=== PATIENT | female | born 1985 | race African-American/Black ===

== ENCOUNTER 2018-04-02 14:00 | Emergency (ER) | payer MEDICAID ==
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
== END 2018-04-02 16:15 | disposition home or self-care (01) ==
LOC: ER 14:00
DX: S46.812A Strain of other muscles, fascia and tendons at shoulder and upper arm level, left arm, initial encounter (principal); V43.62XA Car passenger injured in collision with other type car in traffic accident, initial encounter; Y93.I9 Activity, other involving external motion; Y92.410 Unspecified street and highway as the place of occurrence of the external cause; D61.9 Aplastic anemia, unspecified
CPT/HCPCS: 71046; 99283

== ENCOUNTER 2019-02-16 14:26 | Emergency (ER) | payer MEDICAID ==
[2019-02-16 15:34] LABS: Urine Blood NEGATIVE (NEG); Urine Glucose NEGATIVE (NEG); Urine Protein NEGATIVE (NEG); Urine Specific Gravity 1.015 (1.005-1.030)
[2019-02-16] MEDS ORDERED: ONDANSETRON 4 MG (ODT) TAB ONE (15:42)
[2019-02-16] MEDS ORDERED: MECLIZINE HCL 12.5 MG TAB ONE (15:42)
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
[2019-02-16 15:56] LABS: Urine Specific Gravity 1.015 (1.005-1.030)
--- NOTE | 2019-02-16 15:56 | EDPHYS ---
Physician Documentation [facility] Name: Kristi Jimenez Age: 33 yrs Sex: Female : 1985 Arrival Date: 02/16/2019 Time: 14:29 Bed 15 Private MD: None, None ED Physician Emir Simons HPI: 02/16 15:30 This 33 yrs old Black Female presents to ER via Ambulatory with complaints of juan carlos Congestion, LIGHTHEADED. 15:30 The patient or guardian reports cough, described as mild. Onset: The symptoms/episode juan carlos began/occurred 1 day(s) ago. The patient presents with dizziness. Onset: The symptoms/episode began/occurred today. Context: occurred at home. Modifying factors: The symptoms are alleviated by holding head still, the symptoms are aggravated by movement of head, standing up. Associated signs and symptoms: The patient has no apparent associated signs or symptoms. Severity of symptoms: At their worst the symptoms were mild, in the emergency department the symptoms are unchanged. 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 - Social history:: Smoking status: Patient/guardian denies using tobacco. - Ebola Screening: : No symptoms or risks identified at this time. - Family history:: not pertinent. ROS: 15:30 Constitutional: Negative for fever, chills, and weight loss, Eyes: Negative for injury, juan carlos pain, redness, and discharge, ENT: Negative for injury, pain, and discharge, Neck: Negative for injury, pain, and swelling, Cardiovascular: Negative for chest pain, palpitations, and edema, Abdomen/GI: Negative for abdominal pain, nausea, vomiting, diarrhea, and constipation, Back: Negative for injury and pain, : Negative for injury, bleeding, discharge, and swelling, MS/Extremity: Negative for injury and deformity, Skin: Negative for injury, rash, and discoloration, Psych: Negative for depression, anxiety, suicide ideation, homicidal ideation, and hallucinations, Allergy/Immunology: Negative for hives, rash, and allergies, Endocrine: Negative for neck swelling, polydipsia, polyuria, polyphagia, and marked weight changes, Hematologic/Lymphatic: Negative for swollen nodes, abnormal bleeding, and unusual bruising. 15:30 Respiratory: Positive for cough. 15:30 Neuro: Positive for dizziness, weakness. Exam: 15:30 Constitutional: This is a well developed, well nourished patient who is awake, alert, juan carlos and in no acute distress. Head/Face: Normocephalic, atraumatic. Eyes: Pupils equal round and reactive to light, extra-ocular motions intact. Lids and lashes normal. Conjunctiva and sclera are non-icteric and not injected. Cornea within normal limits. Periorbital areas with no swelling, redness, or edema. ENT: Nares patent. No nasal discharge, no septal abnormalities noted. Tympanic membranes are normal and external auditory canals are clear. Oropharynx with no redness, swelling, or masses, exudates, or evidence of obstruction, uvula midline. Mucous membranes moist. Neck: Trachea midline, no thyromegaly or masses palpated, and no cervical lymphadenopathy. Supple, full range of motion without nuchal rigidity, or vertebral point tenderness. No Meningismus. Chest/axilla: Normal chest wall appearance and motion. Nontender with no deformity. No lesions are appreciated. Cardiovascular: Regular rate and rhythm with a normal S1 and S2. No gallops, murmurs, or rubs. Normal PMI, no JVD. No pulse deficits. Respiratory: Lungs have equal breath sounds bilaterally, clear to auscultation and percussion. No rales, rhonchi or wheezes noted. No increased work of breathing, no retractions or nasal flaring. Abdomen/GI: Soft, non-tender, with normal bowel sounds. No distension or tympany. No guarding or rebound. No evidence of tenderness throughout. Back: No spinal tenderness. No costovertebral tenderness. Full range of motion. Skin: Warm, dry with normal turgor. Normal color with no rashes, no lesions, and no evidence of cellulitis. MS/ Extremity: Pulses equal, no cyanosis. Neurovascular intact. Full, normal range of motion. Neuro: Awake and alert, GCS 15, oriented to person, place, time, and situation. Cranial nerves II-XII grossly intact. Motor strength 5/5 in all extremities. Sensory grossly intact. Cerebellar exam normal. Normal gait. Psych: Awake, alert, with orientation to person, place and time. Behavior, mood, and affect are within normal limits. 15:30 Musculoskeletal/extremity: DVT Exam: No signs of deep vein thrombosis. no pain, no swelling, no tenderness, negative Homans' sign noted on exam, no appreciated bluish discoloration, no erythema, no increased warmth. Vital Signs: 14:49 BP 129 / 74; Pulse 90; Resp 16; Temp 97.2; Pulse Ox 100% ; Weight 106.59 kg; Height 5 bp ft. 3 in. (160.02 cm); 15:45 BP 111 / 64; Pulse 88; Resp 16; Temp 98.1(O); Pulse Ox 98% on R/A; Pain 0/10; rb1 16:45 BP 126 / 72 Supine; Pulse 80; Resp 18; Pulse Ox 100% on R/A; rb1 16:47 BP 119 / 82 Sitting; Pulse 88; Resp 19; Pulse Ox 100% on R/A; rb1 16:49 BP 123 / 81 Standing; Pulse 94; Resp 19; Pulse Ox 99% on R/A; rb1 14:49 Body Mass Index 41.63 (106.59 kg, 160.02 cm) bp MDM: 15:06 Patient medically screened. [facility] 15:32 Data reviewed: vital signs, nurses notes, lab test result(s). [facility] 02/16 15:15 Order name: Urine Culture [facility] 02/16 15:26 Order name: CBC with Diff [facility] 02/16 15:26 Order name: Comprehensive Metabolic Panel; Complete Time: 16:16 [facility] 02/16 15:27 Order name: CBC with Automated Diff; Complete Time: 16:16 [facility] 02/16 15:33 Order name: Urine Dipstick--Ancillary (enter results) 02/16 15:34 Order name: Urine Dipstick-Ancillary; Complete Time: 15:44 [facility] 02/16 15:15 Order name: Urine Dipstick-Ancillary (obtain specimen); Complete Time: 15:30 [facility] 02/16 15:15 Order name: Urine Test (obtain specimen); Complete Time: 15:30 [facility] 02/16 15:36 Order name: Urine --Ancillary (enter results); Complete Time: 16:16 02/16 15:26 Order name: Orthostatics; Complete Time: 16:54 [facility] Administered Medications: 15:40 Drug: Meclizine 50 mg Route: PO; rb1 16:10 Follow up: Response: No adverse reaction; Marked relief of symptoms rb1 15:40 Drug: Zofran 4 mg Route: PO; rb1 16:10 Follow up: Response: No adverse reaction; Nausea is decreased rb1 15:43 Not Given (Provider discretion): Rocephin - (cefTRIAXone) 1 grams IVPB once over 30 rb1 mins; (mix in 50 mL NS) 15:55 Drug: NS 0.9% 1000 ml Route: IV; Rate: 1 bolus; Site: right antecubital; rb1 16:45 Follow up: IV Status: Completed infusion rb1 15:55 Drug: Rocephin 1 grams Route: IV; Rate: calculated rate; Site: right antecubital; rb1 16:25 Follow up: Response: No adverse reaction; IV Status: Completed infusion rb1 Disposition: 02/16/19 15:54 Discharged to Home. Impression: Dizziness and giddiness, Vertiginous syndromes in diseases classified elsewhere, unspecified ear, Urinary tract infection, site not specified. - Condition is Stable. - Discharge Instructions: Benign Positional Vertigo, Dizziness, Urinary Tract Infection, Adult, Vertigo, Urinary Tract Infection, Adult, [id number], Dizziness, [id number]. - Prescriptions for Meclizine 25 mg Oral Tablet - take 1 tablet by ORAL route every 8 hours As needed; 30 tablet. Zofran 4 mg Oral Tablet - take 1 tablet by ORAL route every 12 hours As needed; 14 tablet. Cipro 250 mg Oral Tablet - take 1 tablet by ORAL route every 12 hours; 14 tablet. - Medication Reconciliation Form, Thank You Letter, Antibiotic Education, Prescription Opioid Use form. - Follow up: Private Physician; When: 2 - 3 days; Reason: Recheck today's complaints, Continuance of care, Re-evaluation by your physician. - Problem is new. - Symptoms have improved. Signatures: Dispatcher [employer] EDEmir Burch MD MD cha Barber, Rebecca, RN RN rb1 Rancho Mo RN RN bp Corrections: (The following items were deleted from the chart) 16:59 15:54 02/16/2019 15:54 Discharged to Home. Impression: Dizziness and giddiness; rb1 Vertiginous syndromes in diseases classified elsewhere, unspecified ear; Urinary tract infection, site not specified. Condition is Stable. Discharge Instructions: Benign Positional Vertigo, Dizziness, Vertigo, Dizziness, [id number], Urinary Tract Infection, Adult, Urinary Tract Infection, Adult, [id number]. Prescriptions for Meclizine 25 mg Oral Tablet - take 1 tablet by ORAL route every 8 hours As needed; 30 tablet, Zofran 4 mg Oral Tablet - take 1 tablet by ORAL route every 12 hours As needed; 14 tablet, Cipro 250 mg Oral Tablet - take 1 tablet by ORAL route every 12 hours; 14 tablet. and Forms are Medication Reconciliation Form, Thank You Letter, Antibiotic Education, Prescription Opioid Use. Follow up: Private Physician; When: 2 - 3 days; Reason: Recheck today's complaints, Continuance of care, Re-evaluation by your physician. Problem is new. Symptoms have improved. juan carlos
[2019-02-16 16:03] LABS: Absolute Lymphocytes (CBC) 1.6 K/uL (0.7-4.9); Absolute Monocytes 0.6 K/uL (0.1-1.3); Basophils % 0.5 % (0-1.3); Eosinophils % 3.1 % (0-4.4); Hematocrit 39.2 % (36.0-45.0); Lymphocytes % 28.9 % (15.3-44.8); Monocytes % 10.8 % (3.3-12.3); RBC Red Blood Cell Count 4.47 M/uL (3.86-4.86)
[2019-02-16 16:04] LABS: Albumin 3.4 g/dL (3.4-5.0); Bilirubin Total 0.4 mg/dL (0.2-1.0); Protein, Total 8.5 g/dL (6.4-8.2)
[2019-02-16] MEDS ORDERED: CEFTRIAXONE/SWI 1gm 1 GM/10 ML SYR ONE (16:04)
[2019-02-16] MEDS ORDERED: NA CHLORIDE 0.9% 1,000 ML ONE (16:04)
== END 2019-02-16 16:59 | disposition home or self-care (01) ==
LOC: ER 14:26
DX: N39.0 Urinary tract infection, site not specified (principal); H82.9 Vertiginous syndromes in diseases classified elsewhere, unspecified ear
CPT/HCPCS: 36415; 80053; 81003; 81025; 85025; 87086; 87088; 96365; 99284; J0696; J7030

== ENCOUNTER 2020-05-31 12:50 | Emergency (ER) | payer MEDICAID, SELFPAY ==
[2020-05-31 13:53] LABS: Urine Blood 2+ (NEG); Urine Glucose NEGATIVE (NEG); Urine Protein NEGATIVE (NEG); Urine pH 5.5 (5.0-7.0)
[2020-05-31] MEDS ORDERED: NA CHLORIDE 0.9% 1,000 ML ONE (13:56)
--- NOTE | 2020-05-31 14:28 | RAD REPORT ---
EXAM DESCRIPTION: US - Transvaginal Study Probe - 05/31/2020 2:17 pm CLINICAL HISTORY: ABD PAIN Pelvic pain. COMPARISON: Pelvis Complete dated 03/02/2017 FINDINGS: The uterus is normal in size, shape and echotexture. The uterus measures 7.3 x 6.2 x 5.0 c m. Small 15 mm intramural fibroid seen superiorly. The endometrial stripe measures 7 mm, normal. The left ovary is normal in size, shape and echotexture. The left ovary measures 3.2 x 1.6 x 1.4 cm. No left ovarian or parovarian lesions. No adnexal masses. Normal Doppler blood flow was demonstrated to the left ovary. The right ovary was obscured by bowel g as. No significant pelvic ascites. IMPRESSION: Small uterine fibroid.
[2020-05-31 14:37] LABS: Absolute Lymphocytes (CBC) 2.1 K/uL (0.7-4.9); Basophils % 0.8 % (0-1.3); Hematocrit 33.3 % (36.0-45.0); Lymphocytes % 41.1 % (15.3-44.8); MPV 7.4 fL (7.6-11.3); RBC Red Blood Cell Count 3.78 M/uL (3.86-4.86)
[2020-05-31 14:51] LABS: BUN Blood Urea Nitrogen 9 mg/dL (7-18); Bicarbonate 30 mmol/L (21-32); Glucose Level 88 mg/dL (74-106); Potassium 3.8 mmol/L (3.5-5.1); Sodium Level 140 mmol/L (136-145)
--- NOTE | 2020-05-31 16:24 | ER ---
Nurse's Notes [facility] Name: Kristi Jimenez Age: 34 yrs Sex: Female : 1985 Arrival Date: 05/31/2020 Time: 12:52 Bed 26 Private MD: Diagnosis: Dysmenorrhea, unspecified Presentation: 05/31 13:04 Chief complaint: Patient states: heavy period for 1 week, usually last 4-5 days, denies em chance of being , denies N/V or fever. Coronavirus screen: Client denies travel out of the [place] in the last 14 days. Ebola Screen: Patient negative for fever greater than or equal to 101.5 degrees Fahrenheit, and additional compatible Ebola Virus Disease symptoms Patient denies exposure to infectious person. Patient denies travel to an Ebola-affected area in the 21 days before illness onset. No symptoms or risks identified at this time. Initial Sepsis Screen: Does the patient meet any 2 criteria? No. Patient's initial sepsis screen is negative. Does the patient have a suspected source of infection? No. Patient's initial sepsis screen is negative. Risk Assessment: Do you want to hurt yourself or someone else? Patient reports no desire to harm self or others. Onset of symptoms was May 24, 2020. 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 - Social history:: Smoking status: Patient denies any tobacco usage or history of. - Family history:: not pertinent. Screenin:04 Abuse screen: Denies threats or abuse. Nutritional screening: No deficits noted. em Tuberculosis screening: No symptoms or risk factors identified. Fall Risk None identified. Assessment: 13:05 General: Appears in no apparent distress. comfortable, Behavior is calm, cooperative, em appropriate for age. Pain: Denies pain. Neuro: Level of Consciousness is awake, alert, obeys commands, Oriented to person, place, time, situation, Appropriate for age. Cardiovascular: Capillary refill < 3 seconds Patient's skin is warm and dry. Respiratory: Airway is patent Respiratory effort is even, unlabored, Respiratory pattern is regular, symmetrical. GI: Abdomen is round non-distended. : Urine is clear, Reports vaginal bleeding that is bright red, with clots, Denies discharge. Derm: Skin is intact, is healthy with good turgor, Skin is pink, warm \T\ dry. Musculoskeletal: Capillary refill < 3 seconds, Range of motion: intact in all extremities. 14:27 Reassessment: Patient appears in no apparent distress at this time. Patient and/or em family updated on plan of care and expected duration. Pain level reassessed. Patient is alert, oriented x 3, equal unlabored respirations, skin warm/dry/pink. 15:30 Reassessment: Patient appears in no apparent distress at this time. Patient and/or em family updated on plan of care and expected duration. Pain level reassessed. Patient is alert, oriented x 3, equal unlabored respirations, skin warm/dry/pink. 16:39 Reassessment: Patient appears in no apparent distress at this time. Patient and/or em family updated on plan of care and expected duration. Pain level reassessed. Patient is alert, oriented x 3, equal unlabored respirations, skin warm/dry/pink. Vital Signs: 13:04 BP 148 / 77; Pulse 76; Resp 18; Pulse Ox 99% on R/A; Weight 106.59 kg; Height 5 ft. 3 em in. (160.02 cm); Pain 0/10; 13:10 Temp 97.8(O); em 14:27 BP 136 / 61; Pulse 59; Resp 18; Pulse Ox 100% on R/A; em 15:30 BP 120 / 62; Pulse 77; Resp 18; Pulse Ox 99% on R/A; em 13:04 Body Mass Index 41.63 (106.59 kg, 160.02 cm) em ED Course: 12:52 Patient arrived in ED. ag5 12:58 Emir Simons MD is Attending Physician. juan carlos 13:04 Domenic Lance, BREANA is Primary Nurse. em 13:04 Patient has correct armband on for positive identification. Placed in gown. Bed in low em position. Call light in reach. Pulse ox on. NIBP on. 13:07 Triage completed. em 13:08 Arm band placed on. em 14:01 US Transvaginal Study (Probe) In Process Unspecified. EDUT 14:20 Initial lab(s) drawn, by me, sent to lab. Inserted saline lock: 20 gauge in right em antecubital area, using aseptic technique. Blood collected. 16:22 Winsome White MD is Referral Physician. [facility] 16:38 No provider procedures requiring assistance completed. IV discontinued, intact, em bleeding controlled, No redness/swelling at site. Pressure dressing applied. Administered Medications: 14:20 Drug: NS 0.9% 1000 ml Route: IV; Rate: 1 bolus; Site: right antecubital; em 14:42 Follow up: IV Status: Completed infusion em Outcome: 16:23 Discharge ordered by . [facility] 16:38 Discharged to home ambulatory. em 16:38 Condition: good 16:38 Discharge instructions given to patient, Instructed on discharge instructions, follow up and referral plans. medication usage, Demonstrated understanding of instructions, follow-up care, medications, Prescriptions given X 1. 16:43 Patient left the ED. em Signatures: Dispatcher [employer] [facility] Emir Simons MD MD cha Munoz, Edgar, RN RN Mason See ag5
--- NOTE | 2020-05-31 16:24 | EDPHYS ---
Physician Documentation [facility] Name: Kristi Jimenez Age: 34 yrs Sex: Female : 1985 Arrival Date: 05/31/2020 Time: 12:52 Bed 26 Private MD: ED Physician Emir Simons HPI: 05/31 16:18 This 34 yrs old Black Female presents to ER via Ambulatory with complaints of Vaginal juan carlos Bleeding. 16:18 The patient presents with vaginal bleeding that is moderate. Onset: The juan carlos symptoms/episode began/occurred 2 day(s) ago. Modifying factors: The symptoms are alleviated by nothing, the symptoms are aggravated by nothing. Associated signs and symptoms: The patient has no apparent associated signs or symptoms. Severity of symptoms: At their worst the symptoms were mild, in the emergency department the symptoms are unchanged. The patient is sexually active, reportedly has a single partner. The patient has not experienced similar symptoms in the past. 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 - Social history:: Smoking status: Patient denies any tobacco usage or history of. - Family history:: not pertinent. ROS: 16:18 Constitutional: Negative for fever, chills, and weight loss, Eyes: Negative for injury, juan carlos pain, redness, and discharge, ENT: Negative for injury, pain, and discharge, Neck: Negative for injury, pain, and swelling, Cardiovascular: Negative for chest pain, palpitations, and edema, Respiratory: Negative for shortness of breath, cough, wheezing, and pleuritic chest pain, Abdomen/GI: Negative for abdominal pain, nausea, vomiting, diarrhea, and constipation, Back: Negative for injury and pain, MS/Extremity: Negative for injury and deformity, Skin: Negative for injury, rash, and discoloration, Neuro: Negative for headache, weakness, numbness, tingling, and seizure, Psych: Negative for depression, anxiety, suicide ideation, homicidal ideation, and hallucinations, Allergy/Immunology: Negative for hives, rash, and allergies, Endocrine: Negative for neck swelling, polydipsia, polyuria, polyphagia, and marked weight changes, Hematologic/Lymphatic: Negative for swollen nodes, abnormal bleeding, and unusual bruising. 16:18 Back: 16:18 : Positive for vaginal bleeding. Exam: 16:18 Constitutional: This is a well developed, well nourished patient who is awake, alert, juan carlos and in no acute distress. Head/Face: Normocephalic, atraumatic. Eyes: Pupils equal round and reactive to light, extra-ocular motions intact. Lids and lashes normal. Conjunctiva and sclera are non-icteric and not injected. Cornea within normal limits. Periorbital areas with no swelling, redness, or edema. ENT: Nares patent. No nasal discharge, no septal abnormalities noted. Tympanic membranes are normal and external auditory canals are clear. Oropharynx with no redness, swelling, or masses, exudates, or evidence of obstruction, uvula midline. Mucous membranes moist. Neck: Trachea midline, no thyromegaly or masses palpated, and no cervical lymphadenopathy. Supple, full range of motion without nuchal rigidity, or vertebral point tenderness. No Meningismus. Chest/axilla: Normal chest wall appearance and motion. Nontender with no deformity. No lesions are appreciated. Cardiovascular: Regular rate and rhythm with a normal S1 and S2. No gallops, murmurs, or rubs. Normal PMI, no JVD. No pulse deficits. Respiratory: Lungs have equal breath sounds bilaterally, clear to auscultation and percussion. No rales, rhonchi or wheezes noted. No increased work of breathing, no retractions or nasal flaring. Abdomen/GI: Soft, non-tender, with normal bowel sounds. No distension or tympany. No guarding or rebound. No evidence of tenderness throughout. Back: No spinal tenderness. No costovertebral tenderness. Full range of motion. Skin: Warm, dry with normal turgor. Normal color with no rashes, no lesions, and no evidence of cellulitis. MS/ Extremity: Pulses equal, no cyanosis. Neurovascular intact. Full, normal range of motion. Neuro: Awake and alert, GCS 15, oriented to person, place, time, and situation. Cranial nerves II-XII grossly intact. Motor strength 5/5 in all extremities. Sensory grossly intact. Cerebellar exam normal. Normal gait. Psych: Awake, alert, with orientation to person, place and time. Behavior, mood, and affect are within normal limits. Vital Signs: 13:04 BP 148 / 77; Pulse 76; Resp 18; Pulse Ox 99% on R/A; Weight 106.59 kg; Height 5 ft. 3 em in. (160.02 cm); Pain 0/10; 13:10 Temp 97.8(O); em 14:27 BP 136 / 61; Pulse 59; Resp 18; Pulse Ox 100% on R/A; em 15:30 BP 120 / 62; Pulse 77; Resp 18; Pulse Ox 99% on R/A; em 13:04 Body Mass Index 41.63 (106.59 kg, 160.02 cm) em MDM: 12:59 Patient medically screened. juan carlos 16:21 Differential diagnosis: endometriosis, menometrorrhagia, menorrhea, nonspecific juan carlos abdominal pain, ovarian cyst, uterine fibroids, urinary tract infection. Data reviewed: vital signs, nurses notes, lab test result(s), radiologic studies, ultrasound. Data interpreted: monitoring tech: rate is 59 beats/min, rhythm is regular, Pulse oximetry: on room air is 100 %. 05/31 13:01 Order name: Basic Metabolic Panel; Complete Time: 15:47 [facility] 05/31 13:01 Order name: CBC with Diff; Complete Time: 15:47 [facility] 05/31 13:01 Order name: US Transvaginal Study (Probe); Complete Time: 15:47 [facility] 05/31 13:32 Order name: Urine Dipstick--Ancillary (enter results); Complete Time: 14:27 05/31 13:32 Order name: Urine --Ancillary (enter results); Complete Time: 14:27 05/31 13:01 Order name: IV Saline Lock; Complete Time: 14:26 [facility] 05/31 13:01 Order name: Labs collected and sent; Complete Time: 14:26 [facility] 05/31 13:01 Order name: NPO; Complete Time: 14:26 [facility] 05/31 13:01 Order name: Urine Dipstick-Ancillary (obtain specimen); Complete Time: 13:22 [facility] 05/31 13:01 Order name: Urine Test (obtain specimen); Complete Time: 13:22 [facility] Administered Medications: 14:20 Drug: NS 0.9% 1000 ml Route: IV; Rate: 1 bolus; Site: right antecubital; em 14:42 Follow up: IV Status: Completed infusion em Disposition: 05/31/20 16:23 Discharged to Home. Impression: Dysmenorrhea, unspecified. - Condition is Stable. - Discharge Instructions: Dysmenorrhea, Menorrhagia, Menorrhagia, [id number], Dysmenorrhea, [id number]. - Medication Reconciliation Form, Thank You Letter, Antibiotic Education, Prescription Opioid Use form. - Follow up: Private Physician; When: 5 - 6 days; Reason: Recheck today's complaints, Continuance of care, Re-evaluation by your physician. Follow up: Winsome White MD; When: 2 - 3 days; Reason: Recheck today's complaints, Re-evaluation by your physician. - Problem is new. - Symptoms have improved. Signatures: Dispatcher [employer] Emir Solorzano MD MD cha Munoz, Edgar RN RN em Corrections: (The following items were deleted from the chart) 16:43 16:23 05/31/2020 16:23 Discharged to Home. Impression: Dysmenorrhea, unspecified. em Condition is Stable. Forms are Medication Reconciliation Form, Thank You Letter, Antibiotic Education, Prescription Opioid Use. Follow up: Private Physician; When: 5 - 6 days; Reason: Recheck today's complaints, Continuance of care, Re-evaluation by your physician. Follow up: Winsome White; When: 2 - 3 days; Reason: Recheck today's complaints, Re-evaluation by your physician. Problem is new. Symptoms have improved. juan carlos
[2020-05-31 16:49] VITALS: TEMP 97.8
[2020-05-31 16:51] VITALS: BP 120/62; O2SAT 99
== END 2020-05-31 16:43 | disposition home or self-care (01) ==
LOC: ER 12:50
DX: N94.6 Dysmenorrhea, unspecified (principal)
CPT/HCPCS: 36415; 76830; 80048; 81003; 81025; 85025; 99284; J7030

== ENCOUNTER 2021-05-17 18:42 | Emergency (ER) | payer SELFPAY ==
--- NOTE | 2021-05-17 20:52 | RAD REPORT ---
EXAM DESCRIPTION: RAD - Foot Left 3 View - 05/17/2021 8:14 pm CLINICAL HISTORY: Pain;Swelling COMPARISON: No comparisons FINDINGS: No left foot fracture or malalignment. No radiopaque foreign bodies. Calcaneal spurring. IMPRESSION: No acute osseus abnormality involving the left foot.
--- NOTE | 2021-05-17 21:30 | EDPHYS ---
Physician Documentation [facility] Name: Kristi Jimenez Age: 35 yrs Sex: Female : 1985 Arrival Date: 05/17/2021 Time: 18:47 Bed 9 Private MD: ED Physician Gege Urias HPI: 05/17 21:05 This 35 yrs old Black Female presents to ER via Ambulatory with complaints of Foot Pain.ma2 21:05 The patient presents with decreased range of motion, an injury, pain. The complaints ma2 affect the left foot. Onset: The symptoms/episode began/occurred suddenly, gradually, 2 day(s) ago. Associated signs and symptoms: Pertinent negatives: numbness, tingling, vomiting, warmth. Severity of symptoms: At their worst the symptoms were mild, in the emergency department the symptoms are unchanged. The patient has not experienced similar symptoms in the past. 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 - Social history:: Smoking status: Patient denies any tobacco usage or history of. Patient/guardian denies using alcohol, street drugs, The patient lives with family. - Family history:: not pertinent. - Hospitalizations: : No recent hospitalization is reported. ROS: 21:05 MS/extremity: Positive for injury or acute deformity, decreased range of motion, pain, ma2 Negative for erythema, tingling, warmth. 21:05 Constitutional: Negative for fever, chills, and weight loss, Eyes: Negative for injury, pain, redness, and discharge. 21:05 All other systems are negative. Exam: 21:05 Constitutional: This is a well developed, well nourished patient who is awake, alert, ma2 and in no acute distress. Head/Face: Normocephalic, atraumatic. Eyes: Pupils equal round and reactive to light, extra-ocular motions intact. Lids and lashes normal. Conjunctiva and sclera are non-icteric and not injected. Cornea within normal limits. Periorbital areas with no swelling, redness, or edema. ENT: Nares patent. No nasal discharge, no septal abnormalities noted. Tympanic membranes are normal and external auditory canals are clear. Oropharynx with no redness, swelling, or masses, exudates, or evidence of obstruction, uvula midline. Mucous membranes moist. Neck: Trachea midline, no thyromegaly or masses palpated, and no cervical lymphadenopathy. Supple, full range of motion without nuchal rigidity, or vertebral point tenderness. No Meningismus. Chest/axilla: Normal chest wall appearance and motion. Nontender with no deformity. No lesions are appreciated. Cardiovascular: Regular rate and rhythm with a normal S1 and S2. No gallops, murmurs, or rubs. Normal PMI, no JVD. No pulse deficits. Respiratory: Lungs have equal breath sounds bilaterally, clear to auscultation and percussion. No rales, rhonchi or wheezes noted. No increased work of breathing, no retractions or nasal flaring. Abdomen/GI: Soft, non-tender, with normal bowel sounds. No distension or tympany. No guarding or rebound. No evidence of tenderness throughout. Back: No spinal tenderness. No costovertebral tenderness. Full range of motion. Skin: Warm, dry with normal turgor. Normal color with no rashes, no lesions, and no evidence of cellulitis. MS/ Extremity: left medial ankle pain and ttp, no redness or warmth, otherwise pulses equal, no cyanosis. Neurovascular intact. Full, normal range of motion. Neuro: Awake and alert, GCS 15, oriented to person, place, time, and situation. Cranial nerves II-XII grossly intact. Motor strength 5/5 in all extremities. Sensory grossly intact. Cerebellar exam normal. Normal gait. Vital Signs: 19:45 BP 134 / 70; Pulse 100; Resp 16; Temp 98.5; Pulse Ox 100% on R/A; Weight 108.86 kg; iw Height 5 ft. 3 in. (160.02 cm); Pain 7/10; 19:45 Body Mass Index 42.51 (108.86 kg, 160.02 cm) iw MDM: 20:58 Patient medically screened. ma2 21:05 Differential diagnosis: fracture, sprain, arthritis, gout. ma2 21:28 Data reviewed: vital signs, nurses notes. Counseling: I had a detailed discussion with ma2 the patient and/or guardian regarding: the historical points, exam findings, and any diagnostic results supporting the discharge/admit diagnosis, the presence of at least one elevated blood pressure reading (>120/80) during this emergency department visit, the need for outpatient follow up. Response to treatment: the patient's symptoms have markedly improved after treatment. 05/17 19:48 Order name: Foot Left 3 View XRAY; Complete Time: 20:59 05/17 21:05 Order name: Ankle Left 3 View XRAY ma2 Administered Medications: No medications were administered Disposition Summary: 05/17/21 21:29 Discharge Ordered Location: Home ma2 Condition: Stable ma2 Diagnosis - Sprain of other ligament of left ankle ma2 Followup: ma2 - With: Private Physician - When: Tomorrow - Reason: If symptoms return Discharge Instructions: - Discharge Summary Sheet ma2 - Ankle Sprain, [id number] ma2 Forms: - Medication Reconciliation Form ma2 - Thank You Letter ma2 - Antibiotic Education ma2 - Prescription Opioid Use ma2 - Work release form vg1 Prescriptions: - Diclofenac Sodium 75 mg Oral Tablet Sustained Release - take 1 tablet by ORAL route 2 times per day; 30 tablet; Refills: 0, Product ma2 Selection Permitted Signatures: Dispatcher [employer] Cassandra Moreno, BREANA RN Gege Wasserman MD MD ma2
--- NOTE | 2021-05-17 21:30 | ER ---
Nurse's Notes [facility] Name: Kristi Jimenez Age: 35 yrs Sex: Female : 1985 Arrival Date: 05/17/2021 Time: 18:47 Bed 9 Private MD: Diagnosis: Sprain of other ligament of left ankle Presentation: 05/17 19:45 Chief complaint: Patient states: slipped at work a couple days ago and now her left iw foot has become swollen and hard to walk on. Coronavirus screen: At this time, the client does not indicate any symptoms associated with coronavirus-19. Ebola Screen: Patient negative for fever greater than or equal to 101.5 degrees Fahrenheit, and additional compatible Ebola Virus Disease symptoms Patient denies exposure to infectious person. Patient denies travel to an Ebola-affected area in the 21 days before illness onset. No symptoms or risks identified at this time. Initial Sepsis Screen: Does the patient meet any 2 criteria? No. Patient's initial sepsis screen is negative. Does the patient have a suspected source of infection? No. Patient's initial sepsis screen is negative. Risk Assessment: Do you want to hurt yourself or someone else? Patient reports no desire to harm self or others. Onset of symptoms was May 15, 2021. 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 - Social history:: Smoking status: Patient denies any tobacco usage or history of. Patient/guardian denies using alcohol, street drugs, The patient lives with family. - Family history:: not pertinent. - Hospitalizations: : No recent hospitalization is reported. Screenin:57 Abuse screen: Denies threats or abuse. Nutritional screening: No deficits noted. vg1 Tuberculosis screening: No symptoms or risk factors identified. Fall Risk Fall in past 12 months (25 points). No secondary diagnosis (0 pts). No IV (0 pts). Ambulatory Aid- None/Bed Rest/Nurse Assist (0 pts). Gait- Normal/Bed Rest/Wheelchair (0 pts) Mental Status- Oriented to own ability (0 pts). Total Key Fall Scale indicates Low Risk Score (25-44 pts). Fall prevention measures have been instituted. Side Rails Up X 2 Placed close to Nursing Station. Assessment: 20:55 General: Appears in no apparent distress. comfortable, Behavior is calm, cooperative. vg1 Pain: Complains of pain in left foot Pain currently is 7 out of 10 on a pain scale. at worst was 10 out of 10 on a pain scale. Aggravated by weight bearing. Neuro: Level of Consciousness is awake, alert, obeys commands, Oriented to person, place, time, situation. Cardiovascular: Patient's skin is warm and dry. Pulses are palpable in right dorsalis pedis artery and left dorsalis pedis artery. Respiratory: Airway is patent Respiratory effort is even, unlabored. GI: No signs and/or symptoms were reported involving the gastrointestinal system. : No signs and/or symptoms were reported regarding the genitourinary system. EENT: No signs and/or symptoms were reported regarding the EENT system. Derm: Skin is intact, is healthy with good turgor. Musculoskeletal: Swelling present in left medial malleolus Tenderness present in left medial malleolus. Vital Signs: 19:45 BP 134 / 70; Pulse 100; Resp 16; Temp 98.5; Pulse Ox 100% on R/A; Weight 108.86 kg; iw Height 5 ft. 3 in. (160.02 cm); Pain 7/10; 19:45 Body Mass Index 42.51 (108.86 kg, 160.02 cm) iw ED Course: 18:47 Patient arrived in ED. mr 19:46 Triage completed. iw 19:47 Arm band placed on. iw 20:14 Foot Left 3 View XRAY In Process Unspecified. EDMS 20:50 Stefanie Hoffmann, RN is Primary Nurse. vg1 20:57 Patient has correct armband on for positive identification. Bed in low position. Call vg1 light in reach. 20:57 No provider procedures requiring assistance completed. Patient did not have IV access vg1 during this emergency room visit. 20:58 Gege Urias MD is Attending Physician. ma2 21:31 Ankle Left 3 View XRAY In Process Unspecified. EDMS Administered Medications: No medications were administered Outcome: 21:29 Discharge ordered by . ma2 21:52 Discharged to home via wheelchair. vg1 21:52 Condition: stable 21:52 Discharge instructions given to patient, Instructed on discharge instructions, follow up and referral plans. medication usage, Demonstrated understanding of instructions, follow-up care, medications, Prescriptions given X 1. 21:52 Patient left the ED. vg1 Signatures: Dispatcher [employer] EDSC FrankMaisha mr Cassandra Cochran, RN RN iw Gege Urias MD MD ma2 Stefanie Hoffmann RN RN vg1 Corrections: (The following items were deleted from the chart) 19:48 19:45 Pulse 100bpm; Resp 16bpm; Pulse Ox 100% RA; Temp 98.5F; 108.86 kg; Height 5 ft. 3 iw in.; BMI: 42.5; Pain 7/10; iw
--- NOTE | 2021-05-17 21:48 | RAD REPORT ---
EXAM DESCRIPTION: RAD - Ankle Left 3 View - 05/17/2021 9:31 pm CLINICAL HISTORY: PAIN COMPARISON: No comparisons FINDINGS: No acute fracture. No malalignment. Calcaneal spurring. IMPRESSION: No acute osseous abnormality.
[2021-05-17 22:09] VITALS: BP 134/70; TEMP 98.5; O2SAT 100
== END 2021-05-17 21:52 | disposition home or self-care (01) ==
LOC: ER 18:42
DX: S93.492A Sprain of other ligament of left ankle, initial encounter (principal)
CPT/HCPCS: 99283

== ENCOUNTER → 2023-10-06 | Emergency (ER) | payer SELFPAY ==
[2023-10-06 15:09] LABS: SARS-CoV-2 Antigen Rapid Res Positive (Negative)
--- NOTE | 2023-10-06 15:12 | EDPHYS ---
Physician Documentation [facility] Name: Kristi Jimenez Age: 37 yrs Sex: Female : 1985 Arrival Date: 10/06/2023 Time: 13:51 Bed IW1 Private MD: ED Physician John Price HPI: 10/06 14:35 This 37 yrs old Black Female presents to ER via Ambulatory with complaints of Flu sb4 Symptoms. 14:36 headache, sore throat, body aches x 5 days. says niece is covid+. has been taking OTC sb4 flu medication without improvement in symptoms. no cough, GI symptoms, fever. Historical: - Allergies: 14:28 No Known Allergies; nj1 - PMHx: 14:28 aplastic anemia; nj1 - PSHx: 14:28 D \T\ C; gallstones; nj1 - Immunization history:: Client reports having NOT received the Covid vaccine. - Social history:: Smoking status: Reported history of juuling and/or vaping. ROS: 14:36 Constitutional: Positive for body aches, malaise, sb4 14:36 Neuro: Positive for headache, 14:36 All other systems are negative, 15:14 Cardiovascular: Negative for chest pain, palpitations, and edema, sb4 Exam: 14:36 Constitutional: This is a well developed, well nourished patient who is awake, alert, sb4 and in no acute distress. Head/Face: Normocephalic, atraumatic. Eyes: Extra-ocular motions intact. Periorbital areas with no swelling, redness, or edema. ENT: Mucous membranes moist. Cardiovascular: Regular rate and rhythm with a normal S1 and S2. Respiratory: Lungs have equal breath sounds bilaterally, clear to auscultation and percussion. No rales, rhonchi or wheezes noted. No increased work of breathing, no retractions or nasal flaring. Abdomen/GI: Soft, non-tender, no distension. Skin: Warm, dry with normal turgor. Normal color with no rashes, no lesions, and no evidence of cellulitis. MS/ Extremity: Pulses equal, no cyanosis. Neurovascular intact. Full, normal range of motion. Neuro: Awake and alert, GCS 15, oriented to person, place, time, and situation. Motor strength 5/5 in all extremities. Sensory grossly intact. Vital Signs: 14:26 BP 130 / 76; Pulse 89; Resp 16; Temp 99; Pulse Ox 100% ; Weight 108.86 kg; Height 5 ft. nj1 3 in. ; Pain 1/10; 14:26 Body Mass Index 42.51 (108.86 kg, 160.02 cm) nj1 14:26 Pain Scale: Adult nj1 MDM: 14:21 Patient medically screened. sb4 14:36 Differential diagnosis: viral Infection, URI. sb4 15:11 Data reviewed: vital signs, nurses notes, lab test result(s), and as a result, I will sb4 discharge patient. Counseling: I had a detailed discussion with the patient and/or guardian regarding the historical points, exam findings, and any diagnostic results supporting the discharge/admit diagnosis, lab results, to return to the emergency department if symptoms worsen or persist or if there are any questions or concerns that arise at home. 10/06 14:28 Order name: SARS RAPID; Complete Time: 15:11 sb4 10/06 14:28 Order name: Flu sb4 Administered Medications: No medications were administered Disposition Summary: 10/06/23 15:12 Discharge Ordered Notes: Location: Home sb4 Problem: an ongoing problem sb4 Symptoms: are unchanged sb4 Condition: Stable sb4 Diagnosis - SARS-associated coronavirus as the cause of diseases classified elsewhere sb4 Followup: sb4 - With: Emergency Department - When: As needed - Reason: Trouble breathing, Worsening of condition Discharge Instructions: - Discharge Summary Sheet sb4 - 10 Things You Can Do to Manage Your COVID-19 Symptoms at Home - [facility] (04/01/2021) sb4 - COVID-19: What to Do If You Are Sick - [facility] (12/06/2021) sb4 Forms: - Medication Reconciliation Form sb4 - Thank You Letter sb4 - Antibiotic Education sb4 - Prescription Opioid Use sb4 - Patient Portal Instructions sb4 - Leadership Thank You Letter sb4 Addendum: 10/08/2023 15:34 I was immediately available for consultation during this patient's visit. I did not e c2 personally see the patient or discuss the patient with the MYNOR. . Signatures: Dispatcher [employer] Caro Chacko PA-C PA-C sb4 Sierra Culp, RN RN nj1 John Price, MD ec2
--- NOTE | 2023-10-06 15:12 | ER ---
Nurse's Notes [facility] Name: Kristi Jimenez Age: 37 yrs Sex: Female : 1985 Arrival Date: 10/06/2023 Time: 13:51 Bed IW1 Private MD: Diagnosis: SARS-associated coronavirus as the cause of diseases classified elsewhere Presentation: 10/06 14:26 Chief complaint: Patient states: Sore throat, body aches, headaches since Sunday. Niece nj1 dx with COVID. Coronavirus screen: Vaccine status: Patient reports being unvaccinated. Ebola Screen: Patient denies travel to an Ebola-affected area in the 21 days before illness onset. Initial Sepsis Screen: Does the patient meet any 2 criteria? No. Patient's initial sepsis screen is negative. Does the patient have a suspected source of infection? No. Patient's initial sepsis screen is negative. Risk Assessment: Do you want to hurt yourself or someone else? Patient reports no desire to harm self or others. Onset of symptoms was October 01, 2023. 14:26 Method Of Arrival: Ambulatory [facility] 14:26 Acuity: BROOKS 4 [facility] Triage Assessment: 14:29 General: Appears in no apparent distress. comfortable, Behavior is calm, cooperative, nj appropriate for age. Pain: Complains of pain in Generalized Pain currently is 1 out of 10 on a pain scale. Quality of pain is described as aching. Neuro: Level of Consciousness is awake, alert, obeys commands, Oriented to person, place, time, situation. Cardiovascular: Patient's skin is warm and dry. Respiratory: Airway is patent Respiratory effort is even, unlabored. Historical: - Allergies: 14:28 No Known Allergies; nj1 - PMHx: 14:28 aplastic anemia; nj1 - PSHx: 14:28 D \T\ C; gallstones; nj1 - Immunization history:: Client reports having NOT received the Covid vaccine. - Social history:: Smoking status: Reported history of juuling and/or vaping. Vital Signs: 14:26 BP 130 / 76; Pulse 89; Resp 16; Temp 99; Pulse Ox 100% ; Weight 108.86 kg; Height 5 ft. nj1 3 in. ; Pain 09/26; 14:26 Body Mass Index 42.51 (108.86 kg, 160.02 cm) nj1 14:26 Pain Scale: Adult az1 ED Course: 13:54 Patient arrived in ED. im 13:54 Caro Mccallum PA-C [facility] sb4 13:54 John Price MD is Attending Physician. sb4 14:28 Triage completed. nj1 14:29 Arm band placed on right wrist. nj1 14:30 Patient placed in waiting room. nj1 15:19 Patient did not have IV access during this emergency room visit. nj1 Administered Medications: No medications were administered Outcome: 15:12 Discharge ordered by . sb4 15:19 Discharged to home ambulatory, nj1 15:19 Condition: stable 15:19 Discharge instructions given to patient, Instructed on discharge instructions, follow up and referral plans. safety practices, Demonstrated understanding of instructions, follow-up care, 15:20 Patient left the ED. nj1 Signatures: Caro Mccallum PA-C PA-C sb4 Sierra Culp RN RN nj1 Leanna Beard im Corrections: (The following items were deleted from the chart) 14:28 14:26 Pulse 89bpm; Resp 16bpm; Pulse Ox 100%; Temp 99F; 108.86 kg; Height 5 ft. 3 in.; nj1 BMI: 42.5; Pain 09/26, Adult; nj1
[2023-10-06 17:47] VITALS: BP 130/76; TEMP 99; O2SAT 100
== END ==
LOC: ER 13:51
DX: U07.1 COVID-19 (principal); J02.9 Acute pharyngitis, unspecified; R51.9 Headache, unspecified; R50.9 Fever, unspecified
CPT/HCPCS: 36415; 87804; 87811; 99282

== ENCOUNTER 2024-07-21 18:14 | Emergency (ER) | payer SELFPAY ==
--- OUTSIDE RECORDS SUMMARY | 2024-07-21 18:17 | XMS REPORT | Continuity of Care Document ---
Author Name Unknown Address [address] [place] [address] [facility] [employer] Address [address] [place] [address] Care Team Providers [employer] Account Manager Name Role Phone MARLIN OLGUIN Primary Care Physician LAUREN Davidson Attending Clinician Unavailable Payers Payer Name Policy Type Policy Number Effective Date Expirati on Date Source [facility] MEDICAID [id number] 2012 00:00:00 [employer] [id number] 2018 00:00:00 Allergies, Adverse Reactions, Alerts Allergy Name Allergy Type Status Severity Reaction(s) Onset Date Inactive Date Treating Clinician Comments Source NO KNOWN ALLERGIE S Drug Class Active [facility] Encounters Start Date/Time End Date/Time Encounter Type Admission Type Attending Clinicians Care Facility Care Department Encounter ID Source 2021-11-02 10:17:00 2021-11-02 10:17:00 Emergency X LAUREN YOON [facility] ERT [id number] [facility]
[2024-07-21 21:17] LABS: Absolute Eosinophils 0.1 K/uL (0-0.5); Absolute Lymphocytes (CBC) 2.5 K/uL (0.7-4.9); Absolute Monocytes 0.7 K/uL (0.1-1.3); Absolute Neutrophil 4.5 K/uL (1.8-8.0); Basophils % 0.3 % (0-1.3); Eosinophils % 1.1 % (0-4.4); Hematocrit 26.5 % (36.0-45.0); Hemoglobin 8.7 g/dL (12.0-15.0); Lymphocytes % 32.1 % (15.3-44.8); MCH 27.7 pg (27.0-35.0); MCHC 32.8 g/dL (32.0-36.0); MCV 84.4 fL (80-100); MPV 7.3 fL (7.6-11.3); Monocytes % 9.2 % (3.3-12.3); Neutrophils % 57.3 % (41.7-73.7); Nucleated Red Blood Cells % 0.1 % (0-0); Platelets 362 thou/uL (152-406); RBC Red Blood Cell Count 3.15 M/uL (3.86-4.86); Red Cell Distribution Width 17.9 % (12.1-15.2)
[2024-07-21 21:22] LABS: PT Prothrombin Time 15.1 SECONDS (9.4-12.5); PTT, Activated Partial Thromb 32.8 SECONDS (24.3-36.9); Protime INR 1.36
[2024-07-21 21:34] LABS: Anion Gap 7.6 mEq/L (5.0-15.0); BUN Blood Urea Nitrogen 11 mg/dL (7-18); Bicarbonate 27 mEq/L (21-32); Glomerular Filtration Rate 88 ml/min (=/>90); Glucose Level 99 mg/dL (74-106); Potassium 3.6 mEq/L (3.5-5.1); Sodium Level 137 mEq/L (136-145)
[2024-07-21 21:35] LABS: HCG, Quantitative < 1 mIU/mL (1-3)
[2024-07-21 21:53] LABS: Specific Gravity 1.022 (1.005-1.030)
[2024-07-21 22:06] LABS: Specific Gravity 1.022 (1.005-1.030); Urine Bacteria <20 /HPF (<20); Urine Bilirubin NEGATIVE (Negative); Urine Blood 3+ (OVER) (Negative); Urine Clarity Extremely Turbid (Clear); Urine Color Light-Orange (Yellow); Urine Crystals Unidentified Few /HPF (None Seen); Urine Culture Reflex Order NOT NEEDED; Urine Glucose NEGATIVE (Negative); Urine Ketones NEGATIVE (Negative); Urine Microscopic Reflex YN ORDER UMIC; Urine Nitrite NEGATIVE (Negative); Urine Protein 1+ (Negative); Urine RBC >50 /HPF (None Seen); Urine Urobilinogen Normal (Normal); Urine pH 5.5 (5.0-7.0)
--- NOTE | 2024-07-22 00:18 | ER ---
Nurse's Notes [facility] Name: Kristi Jimenez Age: 38 yrs Sex: Female : 1985 Arrival Date: 07/21/2024 Time: 18:14 Bed 19 Private MD: Diagnosis: Anemia, unspecified;Abnormal uterine and vaginal bleeding, unspecified Presentation: 07/21 19:09 Chief complaint: Patient states: had been having vaginal bleeding x 1 month ago and aa5 states "it's getting heavier and I have been passing clots". Pt reports lower abd pain. Coronavirus screen: At this time, the client does not indicate any symptoms associated with coronavirus-19. Ebola Screen: Patient denies travel to an Ebola-affected area in the 21 days before illness onset. Initial Sepsis Screen: Does the patient meet any 2 criteria? No. Patient's initial sepsis screen is negative. Does the patient have a suspected source of infection? No. Patient's initial sepsis screen is negative. Risk Assessment: Do you want to hurt yourself or someone else? Patient reports no desire to harm self or others. Onset of symptoms was June 19, 2024. 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 - Infectious Disease History:: Denies. - Social history:: Smoking status: Reported history of juuling and/or vaping. Screenin:01 [facility] ED Fall Risk Assessment (Adult) History of falling in the last 3 months, cp4 including since admission No falls in past 3 months (0 pts) Confusion or Disorientation No (0 pts) Intoxicated or Sedated No (0 pts) Impaired Gait No (0 pts) Mobility Assist Device Used No (0 pt) Altered Elimination No (0 pt) Score/Fall Risk Level 0 - 2 = Low Risk Oriented to surroundings, Maintained a safe environment, Assessed \\T\\ reinforced patient's understanding of fall precautions, Hourly rounding (assess needs \\T\\ fall precautionary measures) done. Abuse screen: Denies threats or abuse. Nutritional screening: No deficits noted. Tuberculosis screening: No symptoms or risk factors identified. Assessment: 22:01 General: Appears in no apparent distress. comfortable, Behavior is calm, cooperative, cp4 appropriate for age. Pain: Denies pain. Neuro: Level of Consciousness is awake, alert, obeys commands, Oriented to person, place, time, situation. Cardiovascular: Patient's skin is warm and dry. Respiratory: Airway is patent Respiratory effort is even, unlabored. GI: No signs and/or symptoms were reported involving the gastrointestinal system. : Urine is blood tinged, Reports vaginal bleeding that is bright red, with clots, heavy flow. EENT: No signs and/or symptoms were reported regarding the EENT system. Derm: No signs and/or symptoms reported regarding the dermatologic system. Musculoskeletal: No signs and/or symptoms reported regarding the musculoskeletal system. 23:00 Reassessment: Patient appears in no apparent distress at this time. Patient and/or cp4 family updated on plan of care and expected duration. Pain level reassessed. Patient is alert, oriented x 3, equal unlabored respirations, skin warm/dry/pink. 07/22 00:00 Reassessment: Patient appears in no apparent distress at this time. Patient and/or cp4 family updated on plan of care and expected duration. Pain level reassessed. Patient is alert, oriented x 3, equal unlabored respirations, skin warm/dry/pink. Vital Signs: 07/21 19:09 BP 148 / 70; Pulse 94; Resp 18 S; Temp 98.2(TE); Pulse Ox 98% on R/A; Weight 108.86 kg aa5 (R); Height 5 ft. 3 in. (R); 21:50 BP 125 / 51 LA Supine (auto/lg); Pulse 92; Resp 18; Pulse Ox 98% ; cp4 21:52 BP 122 / 62 LA Sitting (auto/lg); Pulse 95; Resp 18; Pulse Ox 98% ; cp4 21:55 BP 139 / 76 LA Standing (auto/lg); Pulse 93; Resp 18; Pulse Ox 98% ; cp4 23:00 BP 123 / 72; Pulse 98; Resp 18; Pulse Ox 98% ; cp4 07/22 00:00 BP 116 / 77; Pulse 100; Resp 18; Pulse Ox 98% ; cp4 07/21 19:09 Body Mass Index 42.51 (108.86 kg, 160.02 cm) aa5 ED Course: 07/21 18:18 Patient arrived in ED. mg5 18:27 Emir Quiroga PA is PHCP. cp 18:27 Emir Simons MD is Attending Physician. cp 19:09 Arm band placed on. aa5 19:11 Triage completed. aa5 20:34 Ghada Valenzuela is Primary Nurse. cp4 21:14 Ptt, Activated Sent. oe 21:14 PT-INR Sent. oe 21:14 Abo/rh Typing Sent. oe 21:14 Basic Metabolic Panel Sent. oe 21:14 CBC with Diff Sent. oe 21:14 Inserted saline lock: 20 gauge in right antecubital area, using aseptic technique. oe Blood collected. Flushed with 10 mL NS. 22:01 Placed in gown. Bed in low position. Call light in reach. Side rails up X 1. Provided cp4 Education on: vaginal bleeding. 22:40 US Transvaginal Study (Probe) In Process Unspecified. EDMS 07/22 00:16 Winsome White MD is Referral Physician. cp 00:29 No provider procedures requiring assistance completed. intact, bleeding controlled, No cp4 redness/swelling at site. Pressure dressing applied. Administered Medications: No medications were administered Medication: 07/21 22:01 VIS not applicable for this client. cp4 Outcome: 07/22 00:17 Discharge ordered by MD. cp 00:29 Discharged to home ambulatory, cp4 00:29 Condition: stable 00:29 Discharge instructions given to patient, Instructed on discharge instructions, follow up and referral plans. medication usage, Demonstrated understanding of instructions, follow-up care, medications, Prescriptions given X 2, 00:29 Patient left the ED. cp4 Signatures: Dispatcher [employer] EDTX Oneida Barros, RN RN aa5 Emir Quiroga PA PA cp Angus Porras [place] mg5 Ghada Valenzuela cp4
--- NOTE | 2024-07-22 00:19 | EDPHYS ---
Physician Documentation [facility] Name: Kristi Jimenez Age: 38 yrs Sex: Female : 1985 Arrival Date: 07/21/2024 Time: 18:14 Bed 19 Private MD: ED Physician Emir Simons HPI: 07/21 19:12 This 38 yrs old Black Female presents to ER via Ambulatory with complaints of Vaginal cp Bleeding. 19:12 The patient presents with vaginal bleeding that is heavy. Onset: The symptoms/episode cp began/occurred last month, about 06-19-2024. Associated signs and symptoms: Pertinent positives: lightheaded. 19:12 The patient's method of control includes BCP. 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 - Infectious Disease History:: Denies. - Social history:: Smoking status: Reported history of juuling and/or vaping. ROS: 19:20 Constitutional: Negative for body aches, chills, fever, poor PO intake, cp 19:20 Eyes: Negative for injury, pain, redness, and discharge, cp 19:20 Abdomen/GI: Positive for abdominal pain, Negative for vomiting, diarrhea, constipation, 19:20 Back: Negative for pain at rest, pain with movement, 19:20 : Positive for vaginal bleeding, Negative for urinary symptoms, 19:20 Neuro: Positive for lightheaded, Negative for altered mental status, headache, syncope, near syncope, 19:20 All other systems are negative, Exam: 19:25 Constitutional: The patient appears in no acute distress, alert, awake, non-toxic, well cp developed, well nourished, obese, 19:25 Head/Face: Normocephalic, atraumatic. cp 19:25 Eyes: Periorbital structures: appear normal, Conjunctiva: normal, no exudate, no injection, Sclera: no appreciated abnormality, Lids and lashes: appear normal, bilaterally, 19:25 ENT: External ear(s): are unremarkable, Nose: is normal, Mouth: Lips: moist, Oral mucosa: pink and intact, moist, Posterior pharynx: Airway: no evidence of obstruction, patent, 19:25 Chest/axilla: Inspection: normal, 19:25 Cardiovascular: Rate: normal, Rhythm: regular, Edema: is not appreciated, JVD: is not appreciated, 19:25 Respiratory: the patient does not display signs of respiratory distress, Respirations: normal, no use of accessory muscles, no retractions, labored breathing, is not present, Breath sounds: are clear throughout, no decreased breath sounds, no stridor, no wheezing, 19:25 Abdomen/GI: Inspection: abdomen appears normal, Bowel sounds: active, all quadrants, Palpation: soft, in all quadrants, mild abdominal tenderness, in the right lower quadrant and left lower quadrant, 19:25 Back: pain, is absent, ROM is normal, 19:25 Neuro: Orientation: to person, place \T\ time. Mentation: is normal, Motor: moves all fours, strength is normal, Sensation: is normal, Gait: is steady, Vital Signs: 19:09 BP 148 / 70; Pulse 94; Resp 18 S; Temp 98.2(TE); Pulse Ox 98% on R/A; Weight 108.86 kg aa5 (R); Height 5 ft. 3 in. (R); 21:50 BP 125 / 51 LA Supine (auto/lg); Pulse 92; Resp 18; Pulse Ox 98% ; cp4 21:52 BP 122 / 62 LA Sitting (auto/lg); Pulse 95; Resp 18; Pulse Ox 98% ; cp4 21:55 BP 139 / 76 LA Standing (auto/lg); Pulse 93; Resp 18; Pulse Ox 98% ; cp4 23:00 BP 123 / 72; Pulse 98; Resp 18; Pulse Ox 98% ; cp4 07/22 00:00 BP 116 / 77; Pulse 100; Resp 18; Pulse Ox 98% ; cp4 07/21 19:09 Body Mass Index 42.51 (108.86 kg, 160.02 cm) aa5 MDM: 07/21 19:10 Medical Screening Exam initiated cp 21:00 Differential diagnosis: ectopic , pelvic inflammatory disease, uterine cp fibroids, urinary tract infection, vaginosis, anemia, iron deficiency. 07/22 00:16 Data reviewed: vital signs, nurses notes, lab test result(s), radiologic studies, cp ultrasound. 00:16 Counseling: I had a detailed discussion with the patient and/or guardian regarding the cp historical points, exam findings, and any diagnostic results supporting the discharge/admit diagnosis, lab results, the need for outpatient follow up, for definitive care, an OB/Gyne specialist, to return to the emergency department if symptoms worsen or persist or if there are any questions or concerns that arise at home. 07/21 19:13 Order name: Abo/rh Typing; Complete Time: 22:08 cp 07/21 19:13 Order name: Basic Metabolic Panel; Complete Time: 22:08 cp 07/21 22:09 Interpretation: Normal except: GFR 88. 07/21 19:13 Order name: CBC with Diff; Complete Time: 22: 07/21 22:09 Interpretation: Normal except: RBC 3.15; HGB 8.7; HCT 26.5; RDW 17.9; MPV 7.3. 07/21 19:13 Order name: Test, Urine; Complete Time: 22: 07/21 19:13 Order name: Quantitative Hcg; Complete Time: 22: cp 07/21 19:13 Order name: Urinalysis w/ reflexes; Complete Time: 22:08 07/22 00:13 Interpretation: Normal except: [facility] Extremely Turbid; UBLD 3+ (OVER); UPROT 1+; URBC cp >50. 07/21 19:13 Order name: PT-INR; Complete Time: 22:08 07/21 19:13 Order name: Ptt, Activated; Complete Time: 22: 07/21 22:10 Order name: US Transvaginal Study (Probe) 07/21 19:13 Order name: IV Saline Lock; Complete Time: 21:01 cp 07/21 19:13 Order name: Labs collected and sent; Complete Time: 21:02 cp 07/21 19:13 Order name: NPO; Complete Time: 21: 07/21 19:13 Order name: Orthostatics; Complete Time: 21:59 cp Administered Medications: No medications were administered Disposition Summary: 07/22/24 00:17 Discharge Ordered Notes: Location: Home cp Problem: new cp Symptoms: have improved cp Condition: Stable cp Diagnosis - Anemia, unspecified cp - Abnormal uterine and vaginal bleeding, unspecified cp Followup: cp - With: Winsome White MD - When: 2 - 3 days - Reason: Recheck today's complaints Discharge Instructions: - Discharge Summary Sheet cp - Abnormal Uterine Bleeding cp - Anemia cp - Iron-Rich Diet cp - Dysfunctional Uterine Bleeding cp Forms: - Medication Reconciliation Form cp - Antibiotic Education cp - Prescription Opioid Use cp - Patient Portal Instructions cp - Leadership Thank You Letter cp - Work release form cp4 Prescriptions: - medroxyprogesterone 10 mg Oral tablet - take 1 tablet ORAL route daily for 7 days; 7 tablet; Refills: 0, Product cp Selection Permitted - Ferrous Sulfate 325 mg (65 mg Iron) Oral tablet - take 1 tablet ORAL route every 12 hours; 30 tablet; Refills: 0, Product cp Selection Permitted Signatures: Dispatcher [employer] Oneida Lopez RN RN aa5 Emir Quiroga PA PA cp Corrections: (The following items were deleted from the chart) 07/21 19:14 19:14 ABO/RH TYPING+BB.LAB.BRZ ordered. EDMS EDMS 19:14 19:14 BASIC METABOLIC PANEL+C.LAB.BRZ ordered. EDMS EDMS 19:14 19:14 CBC+H.LAB.BRZ ordered. EDMS EDMS 19:14 19:14 Test, Urine+UC.LAB.BRZ ordered. EDMS EDMS 19:14 19:14 QUANTITATIVE HCG+C.LAB.BRZ ordered. EDMS EDMS 19:14 19:14 Urinalysis+U.LAB.BRZ ordered. EDMS EDMS 19:14 19:14 PROTIME (+INR)+COAG.LAB.BRZ ordered. EDMS EDMS 19:14 19:14 PTT, ACTIVATED+COAG.LAB.BRZ ordered. EDMS EDMS
--- NOTE | 2024-07-22 01:07 | RAD REPORT ---
EXAM DESCRIPTION: US PELVIS TRANSVAGINAL CLINICAL HISTORY: Vaginal bleeding. COMPARISON: US Transvaginal 05/31/2020 FINDINGS: Transvaginal images of the pelvis were submitted. The uterus measured 0.5 x 6.6 cm. The endometrial c omplex is thickened measuring 1.8 cm. There is a small amount of fluid within the endometrium. There is no discrete intrauterine . There is a 2.2 x 2.4 cm mass within the uterus compatibl e with fibroid. The right ovary measured 3.6 x 1.6 cm. The left ovary measures 3.1 x 1.9 cm. There is no evidence of mass. There is no sonographic evidence of ovarian torsion. IMPRESSION: No discrete intrauterine . Correlation with status recommended and follow-up as in dicated.. Myomatous uterus. Small amount of fluid within the endometrium could represent blood products. Other etiologies not excluded. Electronically signed by: Escobar Gonzalez MD 07/21/2024 11:27 PM [facility] Due to temporary technical issues with the PACS/Pitadela reporting system, reports are being signed by the in-house radiologist without review as a courtesy to ensure prompt reporting the interpreting radiologist is fully responsible for the content of the report. Transcribed Date/Time: 07/22/2024 1:07 AM
[2024-07-22 01:57] VITALS: TEMP 98.2; O2SAT 98
[2024-07-22 02:12] VITALS: BP 116/77
== END 2024-07-22 00:29 | disposition home or self-care (01) ==
LOC: ER 18:14
DX: D64.9 Anemia, unspecified (principal)
CPT/HCPCS: 36415; 76830; 80048; 81001; 81025; 84702; 85025; 85610; 85730; 86900; 86901; 99284